=== PATIENT | female | born 1930 | race Caucasian/White ===

== ENCOUNTER 2017-06-05 05:33 | Day surgery (SDC) | payer OTHER ==
[2017-06-05] MEDS ORDERED: LR 1,000 ML IV ONE (05:44)
[2017-06-05] MEDS ORDERED: LIDOCAINE 1% 2 ML INJ ID PRN (05:44)
[2017-06-05] MEDS ORDERED: CLINDAMYCIN 600 MG/DEXTROSE 50 ML IV ONE (06:00)
--- NOTE | 2017-06-05 06:55 | PDANEPAE ---
ANE History of Present Illness right hammer toe ANE Past Medical History - Cardiovascular History Hx Hypertension: No Hx Arrhythmias: Yes Hx Chest Pain: No Hx Coronary Artery / Peripheral Vascular Disease: Yes Hx CHF / Valvular Disease: No Hx Palpitations: No Cardiovascular History Comment: Pt has reported to me that she does have intermittent CP, which resolves when she takes aspirin. I instructed pt that she needs to tell Dr Serrano today. -remote hx of AFib - Pulmonary History Hx COPD: No Hx Asthma/Reactive Airway Disease: No Hx Recent Upper Respiratory Infection: No Hx Oxygen in Use at Home: No Hx Sleep Apnea: No Sleep Apnea Screening Result - Last Documented: Negative - Neurologic History Hx Cerebrovascular Accident: No Hx Seizures: No Hx Dementia: No - Endocrine History Hx Diabetes: No - Renal History Hx Renal Disorders: No - Liver History Hx Hepatic Disorders: No - Neurological & Psychiatric Hx Hx Neurological and Psychiatric Disorders: No Neurological / Psychiatric History Comment: R thumb numb - Cancer History Hx Cancer: Yes Cancer History Comment: skin - Congenital Disorder History Hx Congenital Disorders: No - GI History Hx Gastrointestinal Disorders: No - Other Health History Other Health History: none - Chronic Pain History Chronic Pain: Yes (R wrist) - Surgical History Prior Surgeries: cataract,carpal tunnel R ANE Review of Systems Review of systems is: negative Review of Systems: - Exercise capacity Exercise capacity: >=4 METS METS (RN): 4 METS ANE Patient History - Allergies Allergies/Adverse Reactions: Penicillins Allergy (Intermediate, Verified 05/29/17 11:15) Hives - Home Medications Home Medications: Michelle Allergy 05/29/17 [Last Taken 05/29/17] Aspirin 05/29/17 [Last Taken 06/01/17] Paroxetine HCl 05/29/17 [Last Taken 06/04/17 19:00] - NPO status NPO Status: no food or drink >8 hours NPO Since - Liquids (Date): 06/04/17 NPO Since - Liquids (Time): 23:55 NPO Since - Solids (Date): 06/04/17 NPO Since - Solids (Time): 19:00 - Anes Hx Anes Hx: no prior problems - Smoking Hx Smoking Status: Never smoked - Alcohol Use Alcohol Use: None - Family Anes Hx Family Hx Anesthesia Complications: none ANE Labs/Vital Signs - Vital Signs Vital Signs: reviewed preoperatively; see RN documention for details Blood Pressure: 162/88 Heart Rate: 67 Respiratory Rate: 15 O2 Sat (%): 91 Height: 165.1 cm Weight: 47.174 kg ANE Physical Exam - Airway Mallampati Score: Class 2 Mouth exam: normal dental/mouth exam - Pulmonary Pulmonary: no respiratory distress - Cardiovascular Cardiovascular: regular rate and rhythym - ASA Status ASA Status: II ANE Anesthesia Plan Anesthesia Plan: MAC
[2017-06-05] MEDS ORDERED: BUPIVACAINE 0.25% 30 ML SDV ONE (07:00)
[2017-06-05] MEDS ORDERED: BACITRACIN 50,000 UNITS/10 ML SYR IRR ONE (07:01)
[2017-06-05] MEDS ORDERED: LIDOCAINE 2% 5 ML SDV ONE (07:28)
[2017-06-05] MEDS ORDERED: PROPOFOL/EMULSION 500 MG/50 ML BOTTLE IV ONE (07:28)
[2017-06-05] MEDS ORDERED: HYDROCODONE/APAP 5/325 TAB PO PRN (09:05)
[2017-06-05] MEDS ORDERED: OXYCODONE/APAP 5/325 TAB PO PRN (09:05)
[2017-06-05] MEDS ORDERED: NALOXONE HCL 0.4 MG/ML INJ IVP PRN (09:05)
[2017-06-05] MEDS ORDERED: ACETAMINOPHEN 500 MG TAB PO PRN (09:05)
[2017-06-05] MEDS ORDERED: fentaNYL 100 MCG/2 ML INJ IVP PRN (09:05)
--- NOTE | 2017-06-05 09:05 | POSTANESTH ---
Post Anesthetic Evaluation Cardiovascular Status: Normal, Stable Respiratory Status: Normal, Stable Level of Consciousness/Mental Status: Can Participate in Eval Pain Control: Adequate, Prn Tx Ordered Nausea/Vomiting Control: Adequate, Prn Tx Ordered Complications Possibly Related to Anesthesia: None Noted
--- NOTE | 2017-06-05 09:06 | PDHPUP ---
History & Physical Update H&P update statement: This history and physical update is based on an assessment of the patient which was completed after admission or registration (within 24 hours), but prior to the surgery/procedure.
--- NOTE | 2017-06-05 09:09 | POSTOPPROG ---
Post Op Note Date of Operation: 06/05/17 Surgeon: Steve Serrano [employer] Specialist: none Anesthesiologist: herbert Anesthesia: Other (Specify) (local with MAC) Pre-op Diagnosis: hammertoe right 3rd Post-op Diagnosis: same Indication: ulcer right 3rd toe Procedure: hammertoe correction right 3rd Findings: none Inf/Abcess present in the surg proc area at time of surgery?: No Depth: Deep Incisional (Fascial) EBL: Minimal Total fluids administered: 20cc 9/1 .25% marcaine plain and .25% marcaine with epi Complications: none Drains: Other (none)
[2017-06-05] MEDS ORDERED: LABETALOL HCL 5 MG/ML 20 ML MDV IVP ONE (09:30)
[2017-06-05] MEDS ORDERED: LABETALOL HCL 5 MG/ML 20 ML MDV ONE (09:31)
[2017-06-05 10:19] VITALS: BP 167/98; RESP 17
--- NOTE | 2017-06-05 10:20 | GOP ---
[f rep st] OPERATIVE REPORT DATE OF OPERATION: 06/05/2017 SURGEON: Steve Serrano DPM CARD HANGER: None. ANESTHESIA: Local with MAC. ANESTHESIOLOGIST: Ayaz Chan MD PREOPERATIVE DIAGNOSIS: 1. Hammertoe, right 3rd digit. 2. Ulceration, distal right 3rd digit. POSTOPERATIVE DIAGNOSIS: 1. Hammertoe, right 3rd digit. 2. Ulceration, distal right 3rd digit. PROCEDURE PERFORMED: 1. Correction of hammertoe, right 3rd digit. 2. Debridement, ulceration, right 3rd digit. FINDINGS: ESTIMATED BLOOD LOSS: Minimal. DESCRIPTION OF PROCEDURE: Patient presented to [facility] and was cleared for the intended procedure. Patient was taken to the operating room , placed on the table in supine position. IV sedation was started per the anesthesia department. Foot was anesthetized and infiltrated in nerve block fashion. Foot was prepped, scrubbed, and draped in usual sterile fashion. Following exsanguination by elevation with Esmarch bandage, pneumatic ankle tourniquet was inflated to 225 mmHg. At this time, attention was directed to the distal lateral aspect of the right 3rd digit where the obvious hyperkeratotic tissue was identified. Utilizing a 10 blade, the hyperkeratosis was debrided down to the ulceration. The ulceration at this time was noted to be a full-thickness ulceration measuring 2 mm in diameter. It did not probe deeply. There were no signs of infection. There was no erythema, purulent drainage, foul odor noted. The area did not probe deeply to bone. It was decided that no grafting technique was necessary as with correction of a hammertoe correction we would keep pressure off the area , and the area should heal well. Upon completion of the debridement, attention was redirected to the dorsal aspect of the 3rd digit where a linear incision was made over the proximal interphalangeal joint. The incision was carried deep utilizing sharp and blunt dissection, making sure that all neurovascular structures were identified and retracted. At this time, all superficial bleeders were cauterized. The incision was carried down deep to the level of the extensor apparatus at the proximal interphalangeal joint. At this time, the extensor apparatus was sharply transected at the level of the joint and dissected free proximally to allow for adequate exposure to the head of the proximal phalanx. Utilizing a sagittal saw, the head of the proximal phalanx was then resected and removed. The cartilaginous surface on the base of the intermediate phalanx was then removed with a high-speed bur. The area was flushed with copious amounts of sterile saline at this time. Upon completion of this, the proximal and intermediate phalanx was drilled appropriately. Upon measuring, it was decided that the Biomet Hammerlock medium , 0-degree implant would be utilized. The implant was placed proximally into the proximal phalanx before the intermediate phalanx was then also placed distally into alignment. The area was compressed, and good alignment was appreciable. C-arm fluoroscopy at this time showed an excellent position to the implant. The area was flushed with copious amounts of sterile saline at this time before the extensor apparatus was reapproximated with 3-0 Vicryl, followed by subcutaneous closure with 5-0 Vicryl and skin closure with 5-0 nylon. The area was dressed with Betadine-soaked Adaptics, 4 x 4's, Rivka, and Coban. Patient was taken to the recovery room, vital signs stable, vascular supply intact to digits 1 through 5 bilaterally after the pneumatic ankle tourniquet had been released, for a total tourniquet time of 35 minutes. PATHOLOGY: None. HEMOSTASIS: PAT at 225 mmHg x35 minutes. MATERIALS: Biomet Hammerlock implant, medium, 0 degrees. INJECTABLES: 20 cc in 9:1 ratio 0.25% Marcaine plain, 0.25% Marcaine with epinephrine preoperatively. COMPLICATIONS: None. /[id number]/MODL MTDD
[2017-06-05 10:42] VITALS: PULSE 62; TEMP 208.9; O2SAT 93
== END 2017-06-05 10:40 | disposition home or self-care (01) ==
LOC: FSGY 05:33
PROVIDERS: ATTEND Podiatrist Primary Podiatric Medicine
PROC: 0HDMXZZ Extraction of Right Foot Skin, External Approach (ICD-10-PCS; principal; 2017-06-05 07:15)
PROC: 0SGP04Z Fusion of Right Toe Phalangeal Joint with Internal Fixation Device, Open Approach (ICD-10-PCS; principal; 2017-06-05 07:15)
DX: M20.41 Other hammer toe(s) (acquired), right foot (principal); L97.512 Non-pressure chronic ulcer of other part of right foot with fat layer exposed; Z88.0 Allergy status to penicillin
CPT/HCPCS: J0171; J2704; J3490